=== PATIENT | male | born 1940 | race Caucasian/White ===

== ENCOUNTER 2017-02-19 16:59 | Inpatient (IN) | payer OTHER ==
[~2017-02-19] VITALS: Ht 170.2 cm; Wt 59.4 kg
[~2017-02-19 16:59] MED LIST: ASPIR 8181 M1 PO; BENTYL20 MG PO; BISAC-EVAC10 MG PR; GEMFIBROZIL600 MG PO; HYDROCODON-ACE1 EAC7 PO; JANUVIA100 MG PO; LISINOPRIL40 MG PO; METFORMIN HCL1000 MG PO; MIRALAX17 GM PO; PRAVACHOL40 MG PO; SYNTHROID50 MCG PO
[2017-02-19 18:00] LABS: HEMATOCRIT 45.1 % (38.0-50.0); MCH 30.3 PG (29.0-34.0); MCHC 35.3 G/DL (30.0-36.0); MCV 86.1 FL (86-99); MEAN PLAT.VOLUME 11.1 uM^3 (9.0-12.4); PLATELET COUNT 397 K/uL (156-360); RBC DIS.WIDTH-CV 11.9 % (11.8-14.6); RBC DIS.WIDTH-SD 37.7 % (39-53); RED BLOOD COUNT 5.24 M/uL (4.00-5.50); WHITE BLOOD COUNT 14.5 K/uL (4.1-10.2)
[2017-02-19 18:12] LABS: CHLORIDE 95 mEq/L (99-109); POTASSIUM 4.6 mEq/L (3.7-5.4); SODIUM 131 mEq/L (136-147)
[2017-02-19 18:16] LABS: ANION GAP 17 MEQ/L (2-14); GLUCOSE 488 mg/dL (70-99); TOTAL BILIRUBIN 0.7 mg/dL (0.0-1.0)
[2017-02-19 18:18] LABS: ALKALINE PHOSPHATASE 152 IU/L (3-129); GFR ESTIMATE (CALCULATED) 30 mL/min/
[2017-02-19 18:19] LABS: UREA NITROGEN (BUN) 53 mg/dL (9-23)
[2017-02-19 18:38] LABS: CARBON DIOXIDE (BICARBONATE) 22.9 MEQ/L (20-31)
[2017-02-19 19:10] LABS: ADD MIUA? YES; BILIRUBIN NEGATIVE; BLOOD SMALL; COLOR YELLOW ((YELLOW)); GLUCOSE (STRIP) >=500; KETONES 20; LEUKOCYTES NEGATIVE; NITRITE NEGATIVE; PROTEIN (STRIP) 30; SPECIFIC GRAVITY 1.026 (1.000-1.030); UROBILINOGEN 0.2 MG/DL (0.2-1.0)
[2017-02-19 19:17] LABS: BACTERIA NONE SEEN /HPF; EPITHELIAL CELLS NONE SEEN /HPF; MUCUS NONE SEEN /LPF; RED BLOOD CELLS 0-5 /HPF (0-5); UCUL ADDED? NO; WHITE BLOOD CELLS NONE SEEN /HPF (0-5)
[2017-02-19 20:11] LABS: AMYLASE 88 IU/L (1-118); SAMPLE HEMOLYSIS CHECK 0; SAMPLE ICTERIC CHECK 0; SAMPLE LIPEMIA CHECK 0
[2017-02-19 20:16] LABS: LIPASE 407 U/L (1.0-51.0)
[2017-02-19 20:22] LABS: TROP-I INTERPRETATION NEGATIVE; TROPONIN-I < 0.01 ng/mL (0.0-0.30)
[2017-02-19] MEDS ORDERED: GLUCOPHAGE1000 MG PO (20:48)
[2017-02-19] MEDS ORDERED: JANUVIA25 M1 PO (20:48)
[2017-02-19 23:02] LABS: CHLORIDE 104 mEq/L (99-109); POTASSIUM 4.3 mEq/L (3.7-5.4); SODIUM 132 mEq/L (136-147)
[2017-02-19 23:04] LABS: GLUCOSE 308 mg/dL (70-99)
[2017-02-19 23:05] LABS: ANION GAP 9 MEQ/L (2-14)
[2017-02-19 23:08] LABS: GFR ESTIMATE (CALCULATED) 42 mL/min/; UREA NITROGEN (BUN) 51 mg/dL (9-23)
[2017-02-19 23:20] LABS: POINT-OF-CARE METER ID UU13113747
[2017-02-19 23:38] VITALS: BP 111/70
[2017-02-20 04:15] VITALS: BP 106/74
[2017-02-20 06:20] LABS: POINT-OF-CARE METER ID UU14117124
[2017-02-20 07:05] LABS: HEMATOCRIT 38.8 % (38.0-50.0); MCH 29.6 PG (29.0-34.0); RBC DIS.WIDTH-CV 12.1 % (11.8-14.6); RBC DIS.WIDTH-SD 38.8 % (39-53); RED BLOOD COUNT 4.46 M/uL (4.00-5.50); WHITE BLOOD COUNT 11.5 K/uL (4.1-10.2)
[2017-02-20 07:29] LABS: ALKALINE PHOSPHATASE 113 IU/L (3-129); ANION GAP 12 MEQ/L (2-14); CHLORIDE 100 MEQ/L (99-109); GFR ESTIMATE (CALCULATED) 48 mL/min/; GLUCOSE 187 mg/dL (70-99); POTASSIUM 4.2 MEQ/L (3.7-5.4); SAMPLE HEMOLYSIS CHECK 0; SAMPLE ICTERIC CHECK 0; SAMPLE LIPEMIA CHECK 0; SODIUM 137 MEQ/L (136-147); TOTAL BILIRUBIN 0.6 MG/DL (0.0-1.0); UREA NITROGEN (BUN) 49 mg/dL (9-23)
[2017-02-20 07:36] LABS: BASOPHIL COUNT 0.1 K/uL (0-0.1); EOSINOPHIL (%) 5.8 % (0-5); EOSINOPHIL COUNT 0.7 K/uL (0-0.3); IMMATURE GRANULOCYTE (%) 0.4 % (0.0-0.7); IMMATURE GRANULOCYTE COUNT 0.1 K/uL; INSTRUMENT ABS NEUTROPHIL CT 7.6 K/uL; LYMPHOCYTE COUNT 2.2 K/uL (1.0-2.8); MEAN PLAT.VOLUME 10.8 uM^3 (9.0-12.4); MONOCYTE (%) 7.6 % (3-12); MONOCYTE COUNT 0.9 K/uL (0-0.8); NEUTROPHIL (%) 66.1 % (45-76); NEUTROPHIL COUNT 7.6 K/uL (1.8-6.4); PLAT.SUFFICIENCY ADEQUATE
[2017-02-20 07:38] LABS: PLATELET COUNT 248 K/uL (156-360)
[2017-02-20 08:09] VITALS: BP 120/71
[2017-02-20 10:15] LABS: POINT-OF-CARE METER ID UU13113778
[2017-02-20 11:18] LABS: POINT-OF-CARE METER ID UU14117124
[2017-02-20 11:56] VITALS: BP 122/68
[2017-02-20 14:53] VITALS: BP 123/79
[2017-02-20 17:00] LABS: POINT-OF-CARE METER ID UU14117124
[2017-02-20 22:11] LABS: POINT-OF-CARE METER ID UU14208753
[2017-02-20 23:38] VITALS: BP 135/80
[2017-02-21 07:02] LABS: HEMATOCRIT 35.6 % (38.0-50.0); MCH 29.8 PG (29.0-34.0); MCHC 34.3 G/DL (30.0-36.0); MCV 86.8 FL (86-99); MEAN PLAT.VOLUME 10.8 uM^3 (9.0-12.4); PLATELET COUNT 187 K/uL (156-360); RBC DIS.WIDTH-CV 11.9 % (11.8-14.6); RBC DIS.WIDTH-SD 38.2 % (39-53); WHITE BLOOD COUNT 7.7 K/uL (4.1-10.2)
[2017-02-21 07:27] LABS: ANION GAP 10 MEQ/L (2-14); CHLORIDE 101 MEQ/L (99-109); GFR ESTIMATE (CALCULATED) > 59 mL/min/; GLUCOSE 154 mg/dL (70-99); POTASSIUM 4.1 MEQ/L (3.7-5.4); SAMPLE HEMOLYSIS CHECK 1; SAMPLE ICTERIC CHECK 0; SAMPLE LIPEMIA CHECK 0; SODIUM 134 MEQ/L (136-147)
[2017-02-21 07:38] LABS: UREA NITROGEN (BUN) 24 mg/dL (9-23)
[2017-02-21 07:53] VITALS: BP 145/88
[2017-02-21 12:12] LABS: POINT-OF-CARE METER ID UU14188577
[2017-02-21 16:07] LABS: POINT-OF-CARE METER ID UU13113819
[2017-02-21 17:03] LABS: POINT-OF-CARE METER ID UU14208753
[2017-02-21 21:53] LABS: POINT-OF-CARE METER ID UU14117124
[2017-02-21 23:14] VITALS: BP 113/76
[2017-02-22 06:36] LABS: POINT-OF-CARE METER ID UU14188577
[2017-02-22 07:29] VITALS: BP 116/82
[2017-02-22 11:33] LABS: POINT-OF-CARE METER ID UU14208753
[2017-02-22 15:30] VITALS: BP 94/62
[2017-02-22 16:02] LABS: POINT-OF-CARE METER ID UU14149397
[2017-02-22 21:27] LABS: POINT-OF-CARE METER ID UU14117124
[2017-02-22 23:19] VITALS: BP 102/66
[2017-02-23 06:31] LABS: POINT-OF-CARE METER ID UU14117124
[2017-02-23 06:53] LABS: ANION GAP 14 MEQ/L (2-14); CHLORIDE 99 MEQ/L (99-109); GFR ESTIMATE (CALCULATED) > 59 mL/min/; GLUCOSE 204 mg/dL (70-99); POTASSIUM 3.7 MEQ/L (3.7-5.4); SAMPLE HEMOLYSIS CHECK 0; SAMPLE ICTERIC CHECK 0; SAMPLE LIPEMIA CHECK 0; SODIUM 136 MEQ/L (136-147); UREA NITROGEN (BUN) 13 mg/dL (9-23)
[2017-02-23 08:02] VITALS: BP 122/83
[2017-02-23 12:02] LABS: POINT-OF-CARE METER ID UU14117124
[2017-02-23 15:39] VITALS: BP 136/88
[2017-02-23 16:39] LABS: POINT-OF-CARE METER ID UU14149397
[2017-02-23 22:38] LABS: POINT-OF-CARE METER ID UU14208753
[2017-02-23 23:42] VITALS: BP 139/81
[2017-02-24 07:07] LABS: POINT-OF-CARE METER ID UU14208753
[2017-02-24 08:22] VITALS: BP 111/72
[2017-02-24 11:37] LABS: POINT-OF-CARE METER ID UU14149397
[2017-02-24 15:56] LABS: POINT-OF-CARE METER ID UU14208753
[2017-02-24 16:35] VITALS: BP 110/75
[2017-02-24 17:53] LABS: POINT-OF-CARE METER ID UU14208753
[2017-02-24 21:38] LABS: POINT-OF-CARE METER ID UU14208753
[2017-02-24 23:45] VITALS: BP 130/88
[2017-02-25 06:28] LABS: POINT-OF-CARE METER ID UU14208753
[2017-02-25 08:13] VITALS: BP 130/88
[2017-02-25 12:11] LABS: POINT-OF-CARE METER ID UU14208753
== END 2017-02-25 14:30 | disposition home or self-care (01) | DRG 439 ==
LOC: EME 16:59 → 3EAST 21:57 → EDOF 21:57 → ENRESERV 21:59 → 3EAST 23:30
PROVIDERS: Hospitalist; Physician Assistant; Physician Assistant Medical
PROC: 0F9G8ZX Drainage of Pancreas, Via Natural or Artificial Opening Endoscopic, Diagnostic (ICD-10-PCS; principal; 2017-02-21)
DX: K85.90 Acute pancreatitis without necrosis or infection, unspecified (principal); N17.9 Acute kidney failure, unspecified; E86.0 Dehydration; E83.52 Hypercalcemia; E11.65 Type 2 diabetes mellitus with hyperglycemia; E87.1 Hypo-osmolality and hyponatremia; K86.9 Disease of pancreas, unspecified; I10 Essential (primary) hypertension; E78.5 Hyperlipidemia, unspecified; E03.9 Hypothyroidism, unspecified; F17.290 Nicotine dependence, other tobacco product, uncomplicated; Z79.82 Long term (current) use of aspirin; Z79.4 Long term (current) use of insulin
CPT/HCPCS: 71020; 74176; 74183; 80048; 80048 91; 80053; 81003; 82010; 82150; 82436; 82803; 82948; 83690; 84133; 84300; 84484; 85025; 85027; 88305; 93005; 99281; 99285; J0330; J1170; J1650; J1815; J2270; J2405; J3010; J7030; J7120

== ENCOUNTER 2017-03-31 12:49 | Inpatient (IN) | payer OTHER ==
[~2017-03-31] VITALS: Ht 170.2 cm; Wt 56.6 kg
[~2017-03-31 12:49] MED LIST changes: +GLUCOPHAGE1000 MG PO; +JANUVIA25 M1 PO
[2017-03-31 13:04] LABS: CARBOXY HGB 1.1 % (0-5); METHEMOGLOBIN 1.3 % (0-1.5); PCO2 < 18 mm Hg (35-45); PO2 436 mm Hg (80-100); pH 7.43 (7.35-7.45)
[2017-03-31 13:06] LABS: COMMENTS - BLOOD GASES A+C+; DEVICE NRBM; FI02 100 %; O2 FLOW 15 L/MIN; SITE RR; TOTAL RESP RATE 19 resp/min
[2017-03-31 14:38] LABS: BASOPHIL (%) 0.1 % (0-1); EOSINOPHIL (%) 0 % (0-5); HEMATOCRIT 46.4 % (38.0-50.0); HEMOGLOBIN 15.6 G/DL (12.5-16.6); IMMATURE GRANULOCYTE (%) 0.6 % (0.0-0.7); LYMPHOCYTE (%) 3.9 % (15-42); LYMPHOCYTE COUNT 0.6 K/uL (1.0-2.8); MCH 29.8 PG (29.0-34.0); MCHC 33.6 G/DL (30.0-36.0); MCV 88.7 FL (86-99); MONOCYTE (%) 3.6 % (3-12); MONOCYTE COUNT 0.5 K/uL (0-0.8); NEUTROPHIL (%) 91.8 % (45-76); NEUTROPHIL COUNT 12.9 K/uL (1.8-6.4); PLATELET COUNT 225 K/uL (156-360); RBC DIS.WIDTH-CV 14.1 % (11.8-14.6); RBC DIS.WIDTH-SD 45.1 % (39-53); RED BLOOD COUNT 5.23 M/uL (4.00-5.50)
[2017-03-31 14:45] LABS: INTER. NORMALIZED RATIO 1.1
[2017-03-31 14:46] LABS: ALBUMIN 3.6 g/dL (3.2-4.8); CHLORIDE 101 mEq/L (99-109); POTASSIUM 4.1 mEq/L (3.7-5.4); SODIUM 136 mEq/L (136-147)
[2017-03-31 14:48] LABS: GLUCOSE 339 mg/dL (70-99); TOTAL PROTEIN 6.7 g/dL (6.4-8.3)
[2017-03-31 14:50] LABS: TOTAL BILIRUBIN 3.3 mg/dL (0.0-1.0)
[2017-03-31 14:52] LABS: ALKALINE PHOSPHATASE 459 IU/L (3-129); CREATININE 1.8 mg/dL (0.6-1.3); GFR ESTIMATE (CALCULATED) 39 mL/min/ (58.99-99999)
[2017-03-31 14:53] LABS: UREA NITROGEN (BUN) 76 mg/dL (9-23)
[2017-03-31 14:54] LABS: AST (GOT) 39 IU/L (2-34); DIRECT BILIRUBIN 2.5 mg/dL (0.0-0.3)
[2017-03-31 14:55] LABS: ALT (GPT) 324 IU/L (3-49); LIPASE 98 U/L (1.0-51.0)
[2017-03-31 15:19] LABS: TROP-I INTERPRETATION NEGATIVE; TROPONIN-I 0.01 ng/mL (0.0-0.30)
[2017-03-31 17:00] LABS: APPEARANCE SL.HAZY ((CLEAR)); BILIRUBIN NEGATIVE; BLOOD MODERATE; COLOR AMBER ((YELLOW)); GLUCOSE (STRIP) >=500; KETONES 20; LEUKOCYTES NEGATIVE; NITRITE NEGATIVE; PROTEIN (STRIP) 30; SPECIFIC GRAVITY 1.025 (1.000-1.030); UROBILINOGEN 0.2 MG/DL (0.2-1.0)
[2017-03-31 17:20] LABS: BACTERIA 1+ /HPF; CALCIUM OXALATE CRYSTALS 2+ /HPF; EPITHELIAL CELLS 1+ /HPF; MUCUS 1+ /LPF; RED BLOOD CELLS 0-5 /HPF (0-5); UCUL ADDED? NO; WHITE BLOOD CELLS 0-5 /HPF (0-5)
[2017-03-31 18:03] LABS: BASE EXCESS -8.5 mEq/L (-3 to +3); BICARBONATE 14.8 mEq/L (22-26); CARBOXY HGB 1.4 % (0-5); COMMENTS - BLOOD GASES A+C+; DEVICE VM; FI02 40 %; METHEMOGLOBIN 1.3 % (0-1.5); O2 FLOW 8 L/MIN; PCO2 25 mm Hg (35-45); PO2 165 mm Hg (80-100); SITE LR; pH 7.38 (7.35-7.45)
[2017-03-31 20:43] LABS: CHLORIDE 105 MEQ/L (99-109); POTASSIUM 3.7 MEQ/L (3.7-5.4); SODIUM 138 MEQ/L (136-147)
[2017-03-31 20:49] LABS: CREATININE 1.4 MG/DL (0.6-1.3); GFR ESTIMATE (CALCULATED) 53 mL/min/ (58.99-99999); GLUCOSE 220 mg/dL (70-99); UREA NITROGEN (BUN) 66 mg/dL (9-23)
[2017-03-31 22:04] VITALS: BP 108/76
[2017-04-01] MEDS ORDERED: AMARYL4 MG PO (01:25)
[2017-04-01 04:45] VITALS: BP 130/80
[2017-04-01 05:37] LABS: HEMATOCRIT 42.4 % (38.0-50.0); HEMOGLOBIN 14.2 G/DL (12.5-16.6); MCHC 33.5 G/DL (30.0-36.0); MCV 89.6 FL (86-99); RBC DIS.WIDTH-CV 14.3 % (11.8-14.6); RBC DIS.WIDTH-SD 46.6 % (39-53); RED BLOOD COUNT 4.73 M/uL (4.00-5.50); WHITE BLOOD COUNT 10.2 K/uL (4.1-10.2)
[2017-04-01 05:39] LABS: BASOPHIL (%) 0 % (0-1); EOSINOPHIL (%) 0.1 % (0-5); IMMATURE GRANULOCYTE (%) 0.7 % (0.0-0.7); LYMPHOCYTE (%) 5.2 % (15-42); LYMPHOCYTE COUNT 0.5 K/uL (1.0-2.8); MONOCYTE (%) 1.9 % (3-12); MONOCYTE COUNT 0.2 K/uL (0-0.8); NEUTROPHIL (%) 92.1 % (45-76); NEUTROPHIL COUNT 9.4 K/uL (1.8-6.4)
[2017-04-01 06:02] LABS: ALBUMIN 3.3 G/DL (3.2-4.8); ALKALINE PHOSPHATASE 352 IU/L (3-129); ALT (GPT) 228 IU/L (3-49); AST (GOT) 37 IU/L (2-34); CHLORIDE 105 MEQ/L (99-109); CREATININE 1.2 MG/DL (0.6-1.3); GFR ESTIMATE (CALCULATED) > 59 mL/min/ (58.99-99999); GLUCOSE 209 mg/dL (70-99); SODIUM 139 MEQ/L (136-147); TOTAL BILIRUBIN 3.7 MG/DL (0.0-1.0); TOTAL PROTEIN 5.3 G/DL (6.4-8.3); UREA NITROGEN (BUN) 56 mg/dL (9-23)
[2017-04-01 06:14] LABS: PLAT.SUFFICIENCY ADEQUATE
[2017-04-01 06:15] LABS: PLATELET COUNT 150 K/uL (156-360)
[2017-04-01 08:00] VITALS: BP 106/72
[2017-04-01 11:18] VITALS: BP 114/61
[2017-04-01 16:00] VITALS: BP 108/59
[2017-04-01 19:57] VITALS: BP 133/85
[2017-04-01 23:11] VITALS: BP 122/82
[2017-04-02 05:45] VITALS: BP 125/80
[2017-04-02 06:45] LABS: BASOPHIL (%) 0 % (0-1); EOSINOPHIL (%) 0 % (0-5); HEMATOCRIT 40.6 % (38.0-50.0); HEMOGLOBIN 13.4 G/DL (12.5-16.6); IMMATURE GRANULOCYTE (%) 0.7 % (0.0-0.7); LYMPHOCYTE (%) 14.1 % (15-42); LYMPHOCYTE COUNT 1.2 K/uL (1.0-2.8); MCH 29.5 PG (29.0-34.0); MCV 89.4 FL (86-99); MONOCYTE (%) 5.3 % (3-12); MONOCYTE COUNT 0.4 K/uL (0-0.8); NEUTROPHIL (%) 79.9 % (45-76); NEUTROPHIL COUNT 6.7 K/uL (1.8-6.4); PLATELET COUNT 132 K/uL (156-360); RBC DIS.WIDTH-CV 14.3 % (11.8-14.6); RED BLOOD COUNT 4.54 M/uL (4.00-5.50); WHITE BLOOD COUNT 8.4 K/uL (4.1-10.2)
[2017-04-02 06:56] LABS: ALKALINE PHOSPHATASE 286 IU/L (3-129); ALT (GPT) 186 IU/L (3-49); AST (GOT) 43 IU/L (2-34); CHLORIDE 105 MEQ/L (99-109); GFR ESTIMATE (CALCULATED) > 59 mL/min/ (58.99-99999); GLUCOSE 169 mg/dL (70-99); POTASSIUM 3.4 MEQ/L (3.7-5.4); SODIUM 139 MEQ/L (136-147); TOTAL BILIRUBIN 3.9 MG/DL (0.0-1.0); UREA NITROGEN (BUN) 37 mg/dL (9-23)
[2017-04-02 10:04] VITALS: BP 120/87
[2017-04-02 11:37] VITALS: BP 120/81
[2017-04-02 19:16] VITALS: BP 140/89
[2017-04-03 08:00] VITALS: BP 114/77
[2017-04-03 09:11] LABS: HEMATOCRIT 38.5 % (38.0-50.0); MCH 30.2 PG (29.0-34.0); MCHC 33.8 G/DL (30.0-36.0); MCV 89.3 FL (86-99); PLATELET COUNT 122 K/uL (156-360); RBC DIS.WIDTH-CV 14.1 % (11.8-14.6); RBC DIS.WIDTH-SD 46.2 % (39-53); RED BLOOD COUNT 4.31 M/uL (4.00-5.50); WHITE BLOOD COUNT 6.6 K/uL (4.1-10.2)
[2017-04-03 09:41] LABS: ALBUMIN 2.8 G/DL (3.2-4.8); ALT (GPT) 329 IU/L (3-49); CHLORIDE 102 MEQ/L (99-109); GFR ESTIMATE (CALCULATED) > 59 mL/min/ (58.99-99999); GLUCOSE 177 mg/dL (70-99); POTASSIUM 3.6 MEQ/L (3.7-5.4); SODIUM 137 MEQ/L (136-147); TOTAL PROTEIN 4.5 G/DL (6.4-8.3); UREA NITROGEN (BUN) 30 mg/dL (9-23)
[2017-04-03 09:43] LABS: ALKALINE PHOSPHATASE 467 IU/L (3-129); AST (GOT) 179 IU/L (2-34); TOTAL BILIRUBIN 7.5 MG/DL (0.0-1.0)
[2017-04-03 11:07] LABS: LIPASE 84 U/L (1.0-51.0)
[2017-04-03 12:23] VITALS: BP 124/77
[2017-04-03 16:07] VITALS: BP 100/62
[2017-04-03 21:30] VITALS: BP 131/83
[2017-04-04 03:53] VITALS: BP 113/76
[2017-04-04 05:57] LABS: INTER. NORMALIZED RATIO 1.2
[2017-04-04 06:11] LABS: PTT 33.9 SEC (25-37)
[2017-04-04 08:18] LABS: HEMATOCRIT 33.2 % (38.0-50.0); HEMOGLOBIN 11.2 G/DL (12.5-16.6); MCHC 33.7 G/DL (30.0-36.0); PLATELET COUNT 89 K/uL (156-360); RBC DIS.WIDTH-CV 14.4 % (11.8-14.6); RBC DIS.WIDTH-SD 46.6 % (39-53); RED BLOOD COUNT 3.73 M/uL (4.00-5.50); WHITE BLOOD COUNT 4.4 K/uL (4.1-10.2)
[2017-04-04 08:32] LABS: ALBUMIN 2.6 G/DL (3.2-4.8); ALKALINE PHOSPHATASE 498 IU/L (3-129); ALT (GPT) 343 IU/L (3-49); AST (GOT) 157 IU/L (2-34); CHLORIDE 104 MEQ/L (99-109); GFR ESTIMATE (CALCULATED) > 59 mL/min/ (58.99-99999); GLUCOSE 172 mg/dL (70-99); POTASSIUM 3.3 MEQ/L (3.7-5.4); SODIUM 139 MEQ/L (136-147); TOTAL BILIRUBIN 7.9 MG/DL (0.0-1.0); TOTAL PROTEIN 4.2 G/DL (6.4-8.3); UREA NITROGEN (BUN) 26 mg/dL (9-23)
[2017-04-04 09:00] VITALS: BP 137/84
[2017-04-04 09:55] LABS: HEMATOCRIT 33.4 % (38.0-50.0); HEMOGLOBIN 11.1 G/DL (12.5-16.6); MCH 29.4 PG (29.0-34.0); MCHC 33.2 G/DL (30.0-36.0); MCV 88.6 FL (86-99); PLATELET COUNT 96 K/uL (156-360); RBC DIS.WIDTH-CV 14.3 % (11.8-14.6); RED BLOOD COUNT 3.77 M/uL (4.00-5.50); WHITE BLOOD COUNT 4.4 K/uL (4.1-10.2)
[2017-04-04 09:59] LABS: FIBRINOGEN 287 mg/dL (150-450)
[2017-04-04 10:41] LABS: ABS NEUTROPHIL COUNT 3.6; ATYPICAL LYMPHOCYTE 0.9 %; BAND NEUTROPHILS 0.9 % (0-8.0); EOSINOPHIL ABS CT 0; LYMPHOCYTES 16.5 % (15.0-45.0); MONOCYTES 0.9 % (0-9.0); PLAT.SUFFICIENCY DECREASED; SEG.NEUTROPHILS 80.8 % (46.0-76.0); SMUDGE CELLS 19.1
[2017-04-04 10:54] LABS: D-DIMER LATEX NEGATIVE
[2017-04-04 11:26] LABS: SCHISTOCYTES NONE SEEN
[2017-04-04 12:05] VITALS: BP 117/95
[2017-04-04 15:16] VITALS: BP 108/73
[2017-04-04 19:39] VITALS: BP 122/75
[2017-04-04 22:32] VITALS: BP 119/78
[2017-04-05 04:01] VITALS: BP 134/87
[2017-04-05 06:14] LABS: HEMATOCRIT 36.8 % (38.0-50.0); HEMOGLOBIN 12.5 G/DL (12.5-16.6); MCH 30.6 PG (29.0-34.0); PLATELET COUNT 87 K/uL (156-360); RBC DIS.WIDTH-CV 14.7 % (11.8-14.6); RBC DIS.WIDTH-SD 48.5 % (39-53); RED BLOOD COUNT 4.09 M/uL (4.00-5.50); WHITE BLOOD COUNT 6.5 K/uL (4.1-10.2)
[2017-04-05 06:45] LABS: ALBUMIN 2.8 G/DL (3.2-4.8); ALT (GPT) 377 IU/L (3-49); AST (GOT) 136 IU/L (2-34); CHLORIDE 101 MEQ/L (99-109); GFR ESTIMATE (CALCULATED) > 59 mL/min/ (58.99-99999); GLUCOSE 163 mg/dL (70-99); POTASSIUM 3.8 MEQ/L (3.7-5.4); SODIUM 138 MEQ/L (136-147); UREA NITROGEN (BUN) 29 mg/dL (9-23)
[2017-04-05 06:57] LABS: ALKALINE PHOSPHATASE 697 IU/L (3-129); TOTAL BILIRUBIN 10.3 MG/DL (0.0-1.0); TOTAL PROTEIN 4.9 G/DL (6.4-8.3)
[2017-04-05 08:07] VITALS: BP 105/70
[2017-04-05 11:56] VITALS: BP 116/72
[2017-04-05 15:36] VITALS: BP 114/76
[2017-04-05] MEDS ORDERED: HYDROCODON-ACE1 EAC7 PO (15:36)
[2017-04-05 19:30] VITALS: BP 128/89
[2017-04-06 00:15] VITALS: BP 107/74
[2017-04-06 04:20] VITALS: BP 105/73
[2017-04-06 07:01] VITALS: BP 116/83
[2017-04-06 08:22] LABS: HEMATOCRIT 31.5 % (38.0-50.0); HEMOGLOBIN 10.8 G/DL (12.5-16.6); MCH 29.9 PG (29.0-34.0); MCHC 34.3 G/DL (30.0-36.0); MCV 87.3 FL (86-99); PLATELET COUNT 61 K/uL (156-360); RBC DIS.WIDTH-CV 14.5 % (11.8-14.6); RBC DIS.WIDTH-SD 46.2 % (39-53); RED BLOOD COUNT 3.61 M/uL (4.00-5.50); WHITE BLOOD COUNT 3.3 K/uL (4.1-10.2)
[2017-04-06 08:46] LABS: ALBUMIN 2.4 G/DL (3.2-4.8); ALKALINE PHOSPHATASE 745 IU/L (3-129); ALT (GPT) 341 IU/L (3-49); AST (GOT) 127 IU/L (2-34); CHLORIDE 102 MEQ/L (99-109); CREATININE 0.9 MG/DL (0.6-1.3); GFR ESTIMATE (CALCULATED) > 59 mL/min/ (58.99-99999); GLUCOSE 185 mg/dL (70-99); POTASSIUM 3.7 MEQ/L (3.7-5.4); SODIUM 135 MEQ/L (136-147); UREA NITROGEN (BUN) 27 mg/dL (9-23)
[2017-04-06 08:50] LABS: TOTAL PROTEIN 4.1 G/DL (6.4-8.3)
[2017-04-06 15:30] VITALS: BP 109/82
[2017-04-06 19:28] VITALS: BP 103/69
[2017-04-06 20:15] LABS: Heparin Induced Plt Ab Negative (Negative)
[2017-04-06 21:29] LABS: GLUCOSE 275 mg/dL (70-99)
[2017-04-06 23:31] VITALS: BP 102/66
[2017-04-07 03:42] VITALS: BP 105/65
[2017-04-07 05:02] LABS: HEMATOCRIT 26.6 % (38.0-50.0); HEMOGLOBIN 9.5 G/DL (12.5-16.6); MCH 30.5 PG (29.0-34.0); MCHC 35.7 G/DL (30.0-36.0); MCV 85.5 FL (86-99); PLATELET COUNT 53 K/uL (156-360); RBC DIS.WIDTH-CV 14.3 % (11.8-14.6); RBC DIS.WIDTH-SD 44.6 % (39-53); RED BLOOD COUNT 3.11 M/uL (4.00-5.50); WHITE BLOOD COUNT 2.7 K/uL (4.1-10.2)
[2017-04-07 05:17] LABS: ALBUMIN 2.1 g/dL (3.2-4.8); CHLORIDE 103 mEq/L (99-109); POTASSIUM 2.6 mEq/L (3.7-5.4); SODIUM 134 mEq/L (136-147)
[2017-04-07 05:20] LABS: GLUCOSE 111 mg/dL (70-99); TOTAL PROTEIN 4.1 g/dL (6.4-8.3)
[2017-04-07 05:22] LABS: TOTAL BILIRUBIN 8.6 mg/dL (0.0-1.0)
[2017-04-07 05:23] LABS: CREATININE 0.7 mg/dL (0.6-1.3); GFR ESTIMATE (CALCULATED) > 59 mL/min/ (58.99-99999)
[2017-04-07 05:24] LABS: UREA NITROGEN (BUN) 21 mg/dL (9-23)
[2017-04-07 05:26] LABS: ALT (GPT) 351 IU/L (3-49)
[2017-04-07 05:28] LABS: ALKALINE PHOSPHATASE 826 IU/L (3-129); AST (GOT) 147 IU/L (2-34)
[2017-04-07 08:15] VITALS: BP 126/83
[2017-04-07 08:34] LABS: MAGNESIUM 1.3 mg/dL (1.3-2.7)
[2017-04-07 09:11] LABS: PHOSPHORUS < 1.0 mg/dL (2.5-4.9)
[2017-04-07 12:15] VITALS: BP 104/68
[2017-04-07 16:45] LABS: HEMATOCRIT 28.9 % (38.0-50.0); HEMOGLOBIN 9.7 G/DL (12.5-16.6); MCV 87.3 FL (86-99); PLATELET COUNT 53 K/uL (156-360)
[2017-04-07 16:54] LABS: INTER. NORMALIZED RATIO 1.3
[2017-04-07 16:57] VITALS: BP 112/72
[2017-04-07 17:25] VITALS: BP 109/76
[2017-04-07 18:06] LABS: STOOL OCCULT BLD 1ST SPECIMEN POSITIVE
[2017-04-07 20:19] LABS: HEMATOCRIT 29.8 % (38.0-50.0); HEMOGLOBIN 10.1 G/DL (12.5-16.6); MCH 29.6 PG (29.0-34.0); MCHC 33.9 G/DL (30.0-36.0); MCV 87.4 FL (86-99); RBC DIS.WIDTH-CV 14.7 % (11.8-14.6); RBC DIS.WIDTH-SD 47.1 % (39-53); RED BLOOD COUNT 3.41 M/uL (4.00-5.50); WHITE BLOOD COUNT 2.9 K/uL (4.1-10.2)
[2017-04-07 20:44] LABS: IMM.PLATELET FRACTION 5.3 (1-7); PLAT.SUFFICIENCY VERY DECREASED; PLATELET COUNT 48 K/uL (156-360)
[2017-04-07 23:30] VITALS: BP 104/67
[2017-04-08 06:38] LABS: HEMATOCRIT 26.7 % (38.0-50.0); HEMOGLOBIN 9.3 G/DL (12.5-16.6); MCH 30.3 PG (29.0-34.0); MCHC 34.8 G/DL (30.0-36.0); RBC DIS.WIDTH-CV 14.7 % (11.8-14.6); RBC DIS.WIDTH-SD 47.2 % (39-53); RED BLOOD COUNT 3.07 M/uL (4.00-5.50); WHITE BLOOD COUNT 3.1 K/uL (4.1-10.2)
[2017-04-08 07:14] LABS: IMM.PLATELET FRACTION 4.6 (1-7); PLAT.SUFFICIENCY DECREASED; PLATELET COUNT 45 K/uL (156-360)
[2017-04-08 07:16] LABS: ALKALINE PHOSPHATASE 726 IU/L (3-129); ALT (GPT) 258 IU/L (3-49); AST (GOT) 81 IU/L (2-34); CHLORIDE 103 MEQ/L (99-109); CREATININE 0.7 MG/DL (0.6-1.3); GFR ESTIMATE (CALCULATED) > 59 mL/min/ (58.99-99999); GLUCOSE 105 mg/dL (70-99); SODIUM 135 MEQ/L (136-147); TOTAL PROTEIN 3.5 G/DL (6.4-8.3); UREA NITROGEN (BUN) 19 mg/dL (9-23)
[2017-04-08 07:18] LABS: TOTAL BILIRUBIN 7.2 MG/DL (0.0-1.0)
[2017-04-08 07:30] VITALS: BP 107/68
[2017-04-08 08:31] LABS: FOLIC ACID (FOLATE) 5.9 NG/ML (5.0-22.0)
[2017-04-08 09:04] LABS: UFH SRA Result Negative (Negative)
[2017-04-08 15:27] VITALS: BP 100/69
[2017-04-08 23:22] VITALS: BP 115/75
[2017-04-09 08:19] VITALS: BP 112/74
[2017-04-09 11:30] VITALS: BP 102/69
[2017-04-09 16:00] VITALS: BP 113/75
== END 2017-04-09 17:44 | disposition hospice, home (50) | DRG 853 ==
LOC: EME → EDBD 12:49 → EME 12:49 → 4EAST 18:40 → EDOF 18:40 → ENRESERV 18:41 → 4EAST 20:01 → ENRESERV 04-06 09:33 → 5EAST 04-07 17:19 → ENPENDDIS 04-09 14:30 → 5EAST 04-09 17:44
PROVIDERS: Emergency Medicine; Hospitalist; Internal Medicine; Radiology Diagnostic Radiology
PROC: 0F798DZ Dilation of Common Bile Duct with Intraluminal Device, Via Natural or Artificial Opening Endoscopic (ICD-10-PCS; principal; 2017-04-02)
PROC: 0FC98ZZ Extirpation of Matter from Common Bile Duct, Via Natural or Artificial Opening Endoscopic (ICD-10-PCS; principal; 2017-04-02)
PROC: 0F9G4ZZ Drainage of Pancreas, Percutaneous Endoscopic Approach (ICD-10-PCS; principal; 2017-04-02)
PROC: BF47ZZZ Ultrasonography of Pancreas (ICD-10-PCS; principal; 2017-04-02)
PROC: BF101ZZ Fluoroscopy of Bile Ducts using Low Osmolar Contrast (ICD-10-PCS; principal; 2017-04-02)
DX: A41.9 Sepsis, unspecified organism (principal); C78.7 Secondary malignant neoplasm of liver and intrahepatic bile duct; C25.9 Malignant neoplasm of pancreas, unspecified; J96.01 Acute respiratory failure with hypoxia; K83.1 Obstruction of bile duct; N17.9 Acute kidney failure, unspecified; E11.65 Type 2 diabetes mellitus with hyperglycemia; E87.4 Mixed disorder of acid-base balance; D65 Disseminated intravascular coagulation [defibrination syndrome]; D61.818 Other pancytopenia; Z51.5 Encounter for palliative care; R62.7 Adult failure to thrive; R33.9 Retention of urine, unspecified; R64 Cachexia; E86.0 Dehydration; E87.6 Hypokalemia; E78.5 Hyperlipidemia, unspecified; E03.9 Hypothyroidism, unspecified; I10 Essential (primary) hypertension; F17.290 Nicotine dependence, other tobacco product, uncomplicated; E83.39 Other disorders of phosphorus metabolism; R32 Unspecified urinary incontinence; K86.1 Other chronic pancreatitis; I49.3 Ventricular premature depolarization; K21.9 Gastro-esophageal reflux disease without esophagitis; R65.20 Severe sepsis without septic shock; Z74.01 Bed confinement status; Z90.49 Acquired absence of other specified parts of digestive tract; Z87.442 Personal history of urinary calculi; Z83.2 Family history of diseases of the blood and blood-forming organs and certain disorders involving the immune mechanism; Z83.3 Family history of diabetes mellitus; Z68.1 Body mass index [BMI] 19.9 or less, adult; Z82.5 Family history of asthma and other chronic lower respiratory diseases; Z82.49 Family history of ischemic heart disease and other diseases of the circulatory system
CPT/HCPCS: 36600; 71010; 71260; 74000; 74160; 74177; 74328; 77012; 80048 91; 80053; 81003; 82248; 82272; 82607; 82746; 82803; 82948; 83605; 83690; 83735; 83880; 84100; 84484; 84999; 85007; 85014; 85018; 85025; 85027; 85049; 85060; 85378; 85384; 85610; 85730; 86022 90; 86850; 86900; 86901; 86920; 87040; 87081; 87502; 88108; 88305; 88307; 88341 TC; 88342 TC; 93005; 94799; 99202; 99281; 99284; C1726; C1757; C1769; C1876; C9113; J0330; J0610; J0780; J1170; J1644; J1815; J2270; J2405; J2543; J2765; J2930; J3010; J3260; J3370; J3480; J7030; J7040; J7050; J7120